=== PATIENT | male | born 1970 | race Caucasian/White ===

== ENCOUNTER 2018-02-01 15:12 | Emergency (ER) | payer MEDICAID ==
[~2018-02-01] VITALS: Ht 167.6 cm; Wt 72.6 kg
[2018-02-01 15:30] VITALS: BP 133/72
--- NOTE | 2018-02-01 15:41 | NUR ---
PATIENT TAKEN TO BED # 4 VIA [facility]
--- NOTE | 2018-02-01 15:55 | NUR ---
PATIENTS SISTER CALLED WITH SOME INFO. REGARDING PATIENT THAT HE WAS ADMITTED IN [facility] IN ICU FOR SHORT TERM MEMORY LOSS.
[2018-02-01] MEDS ORDERED: NACL 0.9% 1,000 ML IV ONE ×2 (16:15)
[2018-02-01] MEDS ORDERED: LORazepam 2 MG/ML VIAL IVP ONE (16:55)
--- NOTE | 2018-02-01 17:00 | NUR ---
PATIENT STABLE, SPEAKING WITH FAMILY.
--- NOTE | 2018-02-01 17:06 | NUR ---
PATIENT LEFT AMA WITH SISTER AND MOTHER. PATIENT STABLE AT TIME, AMA FORM SIGNED.
== END 2018-02-01 17:06 | disposition left against medical advice (07) ==
LOC: MED 15:12
DX: F41.9 Anxiety disorder, unspecified (principal); F19.10 Other psychoactive substance abuse, uncomplicated; F15.10 Other stimulant abuse, uncomplicated; F17.210 Nicotine dependence, cigarettes, uncomplicated; Z59.0 Homelessness
CPT/HCPCS: 99283

== ENCOUNTER 2019-02-11 18:40 | Emergency (ER) | payer MEDICAID, OTHER ==
[~2019-02-11] VITALS: Ht 172.7 cm; Wt 71.7 kg
[2019-02-11 19:13] VITALS: BP 140/76
[2019-02-11] MEDS ORDERED: IBUPROFEN 800 MG TAB PO ONE (19:20)
[2019-02-11] MEDS ORDERED: ACETAMINOPHEN 325 MG TAB PO ONE (19:20)
[2019-02-11] MEDS ORDERED: KETOROLAC 15 MG/ML VIAL IVP ONE (20:05)
[2019-02-11 20:32] LABS: APPEARANCE,URINE CLEAR (CLEAR); BILIRUBIN,URINE 1+ (NEGATIVE); BLOOD, URINE TRACE-L (NEGATIVE); LEUKOCYTE ESTERASE ,URINE NEGATIVE (NEGATIVE); NITRITE, URINE NEGATIVE (NEGATIVE); UGLUCOSE NEGATIVE (NEGATIVE)
[2019-02-11 20:39] VITALS: BP 114/67
[2019-02-11 21:21] LABS: COLOR,URINE AMBER (YELLOW)
[2019-02-11 21:22] LABS: RBC,URINE 0-5 /HPF (0-5); WBC,URINE 0-5 /HPF (0-5)
== END 2019-02-11 20:39 | disposition left against medical advice (07) ==
LOC: MED 18:40
DX: R10.32 Left lower quadrant pain (principal); R50.9 Fever, unspecified; F17.200 Nicotine dependence, unspecified, uncomplicated; Z71.6 Tobacco abuse counseling
CPT/HCPCS: 81001; 99283

== ENCOUNTER 2019-02-14 14:02 | Emergency (ER) | payer OTHER ==
[~2019-02-14] VITALS: Ht 175.3 cm; Wt 73.9 kg
[2019-02-14 14:18] VITALS: BP 130/72
--- NOTE | 2019-02-14 14:25 | NUR ---
WAIT AT [facility][id number]
--- NOTE | 2019-02-14 14:54 | NUR ---
PT AMB TO BED 9
--- NOTE | 2019-02-14 15:01 | NUR ---
C/O L ELBOW PAIN, REDNESS & SWELLING X 2 DAYS. DENIES TRAUMA RESENTLY. MED HX: HEAD INJURY 2 YEARS AGO& FACE SURGERY
[2019-02-14] MEDS ORDERED: NACL 0.9% 1,000 ML IV ONE (15:55)
[2019-02-14] MEDS ORDERED: KETOROLAC 30 MG/ML VIAL IVP ONE (15:55)
--- NOTE | 2019-02-14 16:25 | NUR ---
I WENT IN PT ROOM TO START IV, PT VERBALLY UPSET STATING HE DOSNT "WANT TO BE POKED AGAIN". PT REFUSING TO LET ME ATTEMPT IV START. PT STATING HE WANTS TO LEAVE. ASKED PT IF HE WANTED TO TAKE A BREAK FROM IV AND LAB ATTEMPTS PT STATES NO " NO I WANT TO LEAVE". PT EDUCATED OF POTENTIAL RISKS OF LEAVING HOSPITAL, PT COMPREHENDED. PT DOES NOT WANT TO WAIT TO SPEAK TO DR HIRSCH, STATES "GIVE ME MY PAPERS SO I CAN LEAVE".
--- NOTE | 2019-02-14 16:35 | NUR ---
Patient does not wish to proceed with medical care recommended by DR HIRSCH. Patient given information related to possible complications, up to and including , which could occur as a result of leaving hospital at this time. Patient verbalizes understanding of risks involved leaving against medical advice. Patient has signed AMA form.
== END 2019-02-14 16:35 | disposition left against medical advice (07) ==
LOC: MED 14:02
DX: L03.114 Cellulitis of left upper limb (principal); F11.90 Opioid use, unspecified, uncomplicated; F17.200 Nicotine dependence, unspecified, uncomplicated
CPT/HCPCS: 99281; J1885

== ENCOUNTER 2022-04-09 20:03 | Emergency (ER) | payer MEDICAID, OTHER ==
[~2022-04-09] VITALS: Ht 177.8 cm; Wt 85.3 kg
[2022-04-09 20:11] VITALS: BP 164/90
--- NOTE | 2022-04-09 20:17 | NUR ---
TO LOBBY FOLLOWING TRIAGE
--- NOTE | 2022-04-09 20:30 | NUR ---
PT TO BED 11
--- NOTE | 2022-04-09 21:06 | NUR ---
PT LEFT FROM FACILITY AT THIS TIME
== END 2022-04-09 21:06 | disposition left against medical advice (07) ==
LOC: MED 20:03
DX: R53.81 Other malaise (principal); Z53.21 Procedure and treatment not carried out due to patient leaving prior to being seen by health care provider